=== PATIENT | male | born 2000 | race American Indian/Alaskan Native ===

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

== ENCOUNTER 2023-02-03 20:21 | Emergency (ER) | payer OTHER ==
[~2023-02-03] VITALS: Ht 177.8 cm; Wt 54.4 kg
[2023-02-03 20:33] VITALS: BP 153/87
== END 2023-02-03 21:00 | disposition home or self-care (01) ==
LOC: ER 20:21
DX: T65.891A Toxic effect of other specified substances, accidental (unintentional), initial encounter (principal)
CPT/HCPCS: 99282